=== PATIENT | female | born 1975 | race Caucasian/White ===

== ENCOUNTER 2024-08-26 08:51 | Day surgery (SDC) | payer OTHER, SELFPAY ==
[2024-08-26] VITALS (24 sets, daily range): BP systolic 72–134; BP diastolic 45–78; PULSE 75–88; RESP 13–23; TEMP 35.8–36.6; O2SAT 94–99; BMI 32.1
--- NOTE | 2024-08-26 07:14 | PDOC.DSDIS_ITS ---
Date of service: 08/26/24 Time of Service: 14:30 Discharge Plan Disposition Patient Disposition: Home Condition: Stable Discharge Details Attending Provider: Roberto Longoria Primary Care Provider: Shantel Gutierrez Home Meds and New Rx's Prescriptions: New naproxen 250 mg tablet 250 - 500 mg PO BID PRN (Reason: Moderate pain) Qty: 20 0RF oxycodone 5 mg tablet 5 - 10 mg PO Q4H PRN (Reason: Moderate to severe pain) Qty: 9 0RF Continued levothyroxine 125 mcg capsule 125 mcg PO DAILY bupropion HCl 150 mg tablet extended release 24 hr 150 mg PO QAM tumeric 300 mg PO DAILY vitamin B complex Tablet 1 tab PO DAILY Acidophilus Capsule 100 mg PO DAILY magnesium glycinate 100 mg tablet 100 mg PO HS Fish Oil 100-160-1,000 mg capsule 1 cap PO DAILY cholecalciferol (vitamin D3) 25 mcg (1,000 unit) capsule 25 mcg PO DAILY Discharge Instructions Additional Instructions: Surgery: Left shoulder arthroscopy with extensive debridement, subacromial decompression, and distal clavicle excision. Activity: You should gradually increase range of motion motion and use of your shoulder. You may use your shoulder for all regular activities. No heavy lifting, reaching overhead, or lifting away from body for approximately 2 months. You may use the sling whenever you are out of the house for a few weeks. At home it is best to remove the sling and rest the arm on a pillow at your side or support the operative side with your other hand. A physical therapy prescription will be sent electronically to start in about 3 weeks. Prescriptions: Naproxen 250 mg take 1-2 every 12 hours with a meal as needed for moderate pain Oxycodone 5 mg take 1-2 every 4-6 hours as needed for severe pain You may use [id number] Tylenol (acetaminophen) as needed for mild pain. These pain medications may be taken all at once or in different combinations as needed. Also, recommend Colace (docusate) as a stool softener as surgery and pain me dicine cause constipation. You may try [id number] diphenhydramine (Benadryl) 25-50 mg nightly as a sleep aid Dressings: Remove shoulder bandage after 3 days. Leave the sticky Steri-Strips in place until they fall off or remove them after you shower. Cover the incisions with Band-Aids or leave them open to air. You may shower after 5 days. Follow-up: 10-[address] Longoria You may take off the leg compression stockings this evening at home. You may also leave them on a few days longer if you have a history of leg swelling or edema. Let us know right away if you develop any redness, drainage, fevers, chest pain, or trouble breathing. Do not drink alcohol or drive for at least 24 hours after anesthesia. Please call the office during business hours with any questions or concerns. 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
--- NOTE | 2024-08-26 07:33 | ROE_ITS ---
Operative Note Operative Note PRE-OP DIAGNOSIS: Left: 1. Partial rotator cuff tear 2. Bursitis 3. Impingement 4. Distal clavicle osteolysis POST-OP DIAGNOSIS: same PROCEDURE: Left: 1. Extensive debridement, CPT# 07416. This involved using arthroscopic hand inst ruments, power instruments, and radiofrequency instruments to release the thickened anterior M GH L and anterior capsular adhesions, debride anterior and superior labral tearing, resect anterior capsular cyst, and debride minimal articular supraspinatus rotator cuff tearing. 2. Subacromial decompression with partial acromioplasty, CPT# 05844. This involved using arthroscopic power instruments and a radiofrequency wand to complete a bursectomy and smooth the undersurface of the acromion. 3. Arthroscopic distal clavicle excision, CPT# 42416. This involved arthroscopically exposing the underside of the acromioclavicular joint, smoothing out bone spurs, and removing a few millimeters of the distal clavicle so there was no bone left engaging the acromion. The employee relations assistant was medically required in order to help assist in techniques above, which require positioning the arm, holding the arthroscope, and manipulating multiple instruments and sutures at the same time. This cannot be done without the help of an experienced employee relations assistant. SURGEON: Roberto Longoria PULVERIZER FEEDER: Tobias Dallas ANESTHESIA TYPE: Local By Surgeon, General LMA/ETT and Primary Nerve Block Refer to Anesthesia Record ESTIMATED BLOOD LOSS: 5 PATHOLOGY: none sent COMPLICATIONS: None Patient was transported to: PACU Patient's condition: stable Implants: None Indications: The patient was diagnosed with the above conditions and appropriately indicated for surgical intervention. Please see complete medical record for details. Findings: Exam under anesthesia: Full range of motion, no instability Glenohumeral joint: Mild anterior rotator with synovitis, moderate subscapularis capsular adhesions, thickened M GH L with apparent enlargement cyst, mild anterior and superior labral fraying. Intact subscapularis. Intact biceps and stable biceps anchor. Intact articular cartilage. Very minimal articular sided supraspinatus rotator cuff tearing. Subacromial space: Moderate bursitis. Intact bursal rotator cuff. Moderately impinging downsloping acromion and a softening of the distal clavicle. Procedure Description: In the operating room, general anesthesia was induced. Bilateral shoulders were examined. The patient was positioned in the beachchair position. All bony prominences were well-padded. Preoperative antibiotics were administered. The shoulder was prepped and draped in the usual sterile fashion. The correct patient, procedure, and side of the procedure were all verified prior to incision. Starting through the posterior portal a standard complete diagnostic arthroscopy was performed of the glenohumeral joint including inspection of the long head of the biceps, anterior and superior labrum, subscapularis tendon, supraspinatus and infraspinatus tendons, and axillary recess. The glenoid and humeral head cartilage as well as the posterior labrum were inspected from an anterior viewing portal. Significant findings and interventions noted above. Although there was some fraying of the superior labrum, the biceps tendon and biceps tendon anchor was uninvolved unable to be displaced into the joint and was otherwise normal in appearance so decision was made to omit any biceps tenodesis especially considering the lack of patient biceps symptoms. The somewhat unusual thickened [facility] on cyst was resected easily with the mechanical shaver then the ends ablated to open up the subscapularis which had some adhesions especially superiorly to the anterior capsule which were released with arthroscopic scissors. Starting through the posterior portal, the arthroscope was directed into the subacromial space. A lateral 50 yard line lateral portal was created. A combination of power instruments and a radiofrequency ablator were used to debride bursitis anteriorly, posteriorly, and laterally as well as expose and smooth bone spurring on the undersurface of the acromion. The coracoacromial ligament was partially released. The bursectomy was completed viewing laterally and working from posteriorly and the rotator cuff was thoroughly inspected with findings noted above. The anterior portal was redirected towards the undersurface of the AC joint. A shaver and electrocautery device were used to clear soft tissue from the undersurface of the AC joint. The distalmost few millimeters of the cystic distal clavicle was then removed until more normal bone was encountered and smoothed. Care was taken to alternate between working through the anterior portal and viewing through the anterior portal to ensure that proper amount of bone was removed and there was no engaging bone left behind especially superiorly. The shoulder was drained of arthroscopic fluid. All portal sites were copiously irrigated. These incisions were closed using 3-0 Monocryl in a buried fashion and then covered with Mastisol, Steri-Strips, Xeroform, dry gauze, and ABDs. The dressings were covered and secured with Medipore tape. The operative extremity was placed into a sling for immobilization. The patient awoke from anesthesia without complication and was transferred to the recovery room in a stable condition. Date of Procedure: 08/26/24
--- NOTE | 2024-08-26 09:58 | W.ANESPRE ---
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: (1) Bursitis of left shoulder: (2) Left rotator cuff tear: (3) 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: Meds Allergies and Home Medications Allergies Allergy/AdvReac Type Severity Reaction Status Date / Time No Known Drug Allergies Allergy none Verified 08/26/24 09:22 environmental Allergy Intermediate itchy eyes Uncoded 08/26/24 09:22 hay Allergy Intermediate itchy eyes Uncoded 08/26/24 09:22 Home Medication ?Medication ?Instructions ?Recorded Lactobacillus acidophilus 100 mg PO DAILY 06/08/24 (Acidophilus capsule) bupropion HCl 150 mg 24 hr tablet, 150 mg PO QAM 06/08/24 extended release cholecalciferol (vitamin D3) 25 25 mcg PO DAILY 06/08/24 mcg (1,000 unit) capsule levothyroxine 125 mcg capsule 125 mcg PO DAILY 06/08/24 magnesium glycinate 100 mg (as 100 mg PO HS 06/08/24 glycinate) tablet omega [id number]-igb-[id number]-fish oil 100 1 cap PO DAILY 06/08/24 mg-160 mg-1,000 mg capsule (Fish Oil) tumeric 300 mg PO DAILY 06/08/24 vitamin B complex 1 tab PO DAILY 06/08/24 Current Visit Medications: Current Medications Generic Name Dose Route Start Last Admin Trade Name Freq PRN Reason Stop Dose Admin Droperidol 0.625 mg 08/26/24 09:19 Droperidol 5 Mg/2 Ml Vial IVP 09/25/24 09:18 DIRECTED PRN Nausea Ephedrine Sulfate 0 mg 08/26/24 09:19 Ephedrine 25 Mg/5 Ml Syringe IVP 09/25/24 09:18 DIRECTED PRN Fentanyl 0 mcg 08/26/24 09:19 Fentanyl 100 Mcg/2 Ml Vial IVP 09/25/24 09:18 DIRECTED PRN Hydromorphone HCl 0 mg 08/26/24 09:19 Hydromorphone 1 Mg/Ml Syr IVP 09/25/24 09:18 DIRECTED PRN Cefazolin Sodium/Dextrose 2 gm in 50 mls @ 100 mls/hr 08/26/24 06:00 Ancef Duplex IVPB 09/24/24 23:59 PREOP ANGELY Tranexamic Acid 1,000 mg/ 110 mls @ 660 mls/hr 08/26/24 06:00 Sodium Chloride IVPB 09/24/24 23:59 PREOP ANGELY IV Miscellaneous Supplies 1 each 08/26/24 06:00 Iv Access IV 09/24/24 23:59 DIRECTED ANGELY Naloxone HCl 0 mg 08/26/24 09:19 Naloxone 0.4 Mg/Ml Vial IVP 09/25/24 09:18 PRN PRN Oxycodone HCl 0 mg 08/26/24 07:14 Oxycodone 5 Mg Tab PO 09/25/24 07:13 Q3H PRN PRN Pain Sodium Chloride 0 ml 08/26/24 06:00 Normal Saline Flush 10 Ml Syr IV 09/24/24 23:59 PRN PRN Sodium Chloride 0 ml 08/26/24 06:00 Normal Saline 10 Ml Vial IJ 09/24/24 23:59 DIRECTED PRN Sterile Water 0 ml 08/26/24 06:00 Water,Injection,Sterile 10 Ml Vial IJ 09/24/24 23:59 DIRECTED PRN PFSH Active Problems Active Problems: Problem Status Onset Code 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 Acute M89.512 Left rotator cuff tear Acute M75.102 Bursitis of left shoulder Acute M75.52 Medical History Medical History Hypothyroid Surgical History Surgical History H/O: hysterectomy History of colonoscopy Tobacco Smoking/Tobacco Use Status: Never Alcohol Alcohol Intake: current Alcohol intake frequency: a few times a week Alcohol type: beer and wine Substance Use Substance use: Never Vital Signs and Lab Results Vital Signs Most Recent Vital Signs in EMR: Most Recent Vital Signs Temp Pulse Resp BP Pulse Ox 36.6 C 80 16 113/78 98 08/26/24 09:24 08/26/24 09:24 08/26/24 09:24 08/26/24 09:24 08/26/24 09:24 Lab Results Blood Type / Crossmatch: No Data to Display Complete Blood Count: No Data to Display Complete Metabolic Panel: No Data to Display Liver Function Panel: No Data to Display Coagulation Panel: No Data to Display Cardiac Panel: No Data to Display Arterial Blood Gas: No Data to Display Venous Blood Gas: No Data to Display Pancreas Panel: No Data to Display Thyroid Panel: No Data to Display Infectious Disease: No Data to Display Blood Cultures: No Data to Display Toxicology Panel: No Data to Display Panel: No Data to Display Anesthesia Assessment and Plan Anesthesia History Personal History: Other Family History: No Family History of Anesthesia Complications Exercise Tolerance Exercise Tolerance: Metabolic Equivalents>4 Pertinent Negatives Pertinent Negatives: No Symptoms of GERD Cardiac & Pulmonary Exam Cardiac Exam: Normal S1/S2 Heart Sounds Pulmonary Exam: Clear Bilateral Breath Sounds Implantable Cardiac Device Does patient have a Pacemaker or an ICD?: No Airway Exam Known Difficult Airway: No Mallampati Class: 2 Mouth Opening: Normal (> 3cm) Thyromental Distance: Greater than 3 cm Neck Range of Motion: Full ROM Neck Circumference: Normal Teeth Condition: Normal Dentition ASA Classification ASA Score: ASA 2 Emergency Case?: No NPO Status NPO Status: NPO Clears >2 hours, Solids >8 hours Status Status: History of Hysterectomy Anesthesia Plan Resuscitation Status: Full Code Anesthesia Technique: General Anesthesia Airway Planned: Endotracheal Tube Pain Management: Surgeon and patient request nerve block Monitors Used: Standard Monitors
[2024-08-26] MEDS: Lactated Ringers 1,000 ML 30 ML IV (10:15)
[2024-08-26] MEDS: ceFAZolin 2 GM/50 ML BAG IVPB (11:00)
[2024-08-26] MEDS: Bupivacaine 0.25% Pres-Free W/EPI 30 ML VIAL (11:34)
--- NOTE | 2024-08-26 11:40 | W.ANESNERVE ---
Nerve Block Single Injection Procedure Date and Time Date Performed: 08/26/24 Procedure Start: 10:36 Location Where Procedure Performed Procedure Location: Day Surgery Unit Reason Performed: Postoperative Analgesia Requesting Provider: Roberto Longoria Timeout Performed Timeout Performed: Yes Monitoring Used ECG, Blood Pressure, SpO2 and See EMR for corresponding vital signs Sterility Sterility: Hand Hygiene, Surgical Cap, Surgical Mask, Sterile Gloves, Eye Protection and Chlorhexidine Sedation Given During Procedure Sedation Given (Indicate Dose Given): Versed IV Dose:: 4mg IVP Patient Mental Status Patient Mental Status: Sedate with meaningful communication Nerve Block 1st Nerve Block: Laterality: Left Block Type: Interscalene Ultrasound Image Saved?: Yes Needle / Catheter Used: 80mm SonoPlex II Local Anesthetic Bolus (Indicate Dose Given): Lidocaine used for local infiltration of skin, Injected in 3-5ml increments after negative blood aspiration, Bupivacaine 0.5% Dose:: 0.5%/10cc (50mg) and Exparel Dose:: 1.33%/10cc (133mg) Additives (Indicate Dose Given): Epinephrine to make 1:200,000 (5mcg/ml) Dose:: 100mcg and Decadron Dose:: 10mg PF Ultrasound: Sterile probe cover and gel used Nerve Stimulator: Not Used Paresthesia: None Procedure Tolerated: No Complications and Patient tolerated well Procedure Outcome: Successful Performed By: Patel Schneider
[2024-08-26] MEDS: EPINEPHrine 10 MG/10 ML ML (12:15)
--- NOTE | 2024-08-26 13:54 | W.ANESPOSTOP ---
Postoperative Evaluation Date, Time and Location Date Performed: 08/26/24 Time Performed: 13:54 Patient Location: Day Surgery Unit Vital Signs Most Recent Imported Vital Signs: Most Recent Vital Signs Temp Pulse Resp BP Pulse Ox 35.8 C L 81 16 122/71 96 08/26/24 13:21 08/26/24 13:21 08/26/24 13:21 08/26/24 13:21 08/26/24 13:21 Pain Score Most Recent Pain Score: Most Recent Pain Score Pain Level 0 08/26/24 13:21 Assessment Mental Status: Awake (Alert & Oriented to Patient Baseline) Airway and Respiratory Function: Patent airway with normal (patient baseline) respiratory exam Cardiovascular Function: Hemodynamically Stable Hydration Status: Adequately Hydrated Nausea & Vomiting: No Nausea or Vomiting Pain: Pt. Denies Any Pain Peripheral Nerve Block: Regional nerve block not resolved at time of post operative discharge
== END 2024-08-26 14:55 | disposition home or self-care (01) ==
LOC: SUR 08:51
PROVIDERS: PCP Internal Medicine; Visit Provider Student in an Organized Health Care Education/Training Program
PROC: (CPT 29805; principal; 2024-08-26 10:30)
DX: M89.512 Osteolysis, left shoulder (principal); M75.52 Bursitis of left shoulder; M75.112 Incomplete rotator cuff tear or rupture of left shoulder, not specified as traumatic; M75.42 Impingement syndrome of left shoulder; G89.18 Other acute postprocedural pain
CPT/HCPCS: 29823; 29826; 29824; 64415; C9290; J0131; J0171; J0665; J0690; J1100; J1885; J2003; J2250; J2405; J2704

== ENCOUNTER 2024-12-22 15:56 | Outpatient (CLI) | payer OTHER, SELFPAY ==
--- NOTE | 2024-12-22 14:15 | DI.RAD_ITS ---
Exam(s) XR SHOULDER LT 1V EXAM: XR SHOULDER LT 1V CLINICAL HISTORY: LEFT SHOULDER PAIN. TECHNIQUE: 2D digital imaging was performed. 1 view. COMPARISON: CR,RF XR SHOULDER MIN 2V LT from 03/07/2023 CR XR SHOULDER MIN 2V LT from 12/25/2023 MR MR SHOULDER LT WO CONTRAST from 03/05/2024 FINDINGS: BONES: No acute fracture is present. No bony destructive lesion is seen. JOINTS: Mild widening of the AC joint compared with prior exam.. SOFT TISSUE: Normal. IMPRESSION: Mild widening of the AC joint. DATA REPOSITORY: RADIATION DOSE DELIVERED:
== END 2024-12-22 15:57 | disposition home or self-care (01) ==
LOC: DIORS 15:56
PROVIDERS: PCP Internal Medicine; Visit Provider Student in an Organized Health Care Education/Training Program
DX: M89.512 Osteolysis, left shoulder (principal)
CPT/HCPCS: 73020